=== PATIENT | female | born 2000 | race Caucasian/White ===

== ENCOUNTER 2020-01-27 23:50 | Emergency (ER) | payer SELFPAY ==
[~2020-01-27] VITALS: Ht 170.2 cm; Wt 59.0 kg
[2020-01-28] MEDS ORDERED: DOXYCYCLINE HY100 MG PO (03:56)
[2020-01-28] MEDS ORDERED: NORCO 5-325 TA1 EACH PO (03:56)
== END 2020-01-28 04:16 | disposition home or self-care (01) ==
LOC: ED 23:50
DX: N71.9 Inflammatory disease of uterus, unspecified (principal); Z88.0 Allergy status to penicillin
CPT/HCPCS: 71045; 76830; 76856; 80053; 81001; 83605; 84702; 85025; 96374; 96375; 99284-25; J1170; J1885; J2405; J7030